=== PATIENT | male | born 1995 | race Two or more races ===

== ENCOUNTER 2019-05-02 16:39 | Emergency (ER) | payer SELFPAY ==
[~2019-05-02] VITALS: Ht 188 cm; Wt 93.9 kg
[2019-05-02] MEDS ORDERED: KETOROLAC TROMETH 30 MG/ML 1ML VIAL IV ONE (18:15)
[2019-05-02] MEDS ORDERED: MORPHINE SULFATE 4 MG/ML SYR/VIAL IV ONE (19:15)
[2019-05-02] MEDS ORDERED: ONDANSETRON HCL 4 MG/2 ML VIAL IV ONE (19:15)
[2019-05-02 20:00] VITALS: BP 124/76
== END 2019-05-02 20:45 | disposition home or self-care (01) ==
LOC: ER 16:39
DX: N44.2 Benign cyst of testis (principal)
CPT/HCPCS: 76870; 96374; 96375; 99284; J1885; J2270; J2405